=== PATIENT | male | born 1945 | race Caucasian/White ===

== ENCOUNTER → 2016-09-05 09:03 | Outpatient (CLI) | payer MEDICARE, OTHER ==
[2015-11-18 06:21] VITALS: BMI 24.5
[~2016-09-05 09:03] MED LIST: AUGMENTIN 875-11 TAB PO; BAYER CHEWABLE81 MG PO; DECADRON4 MG PO; FOLIC ACID1 MG PO; HYDROCODON-ACE1 EAC6 PO; HYDROCODONE-APA1 TAB PO; HYDROMET PO; MIRALAX17 GM PO; NORVASC5 MG PO; OMNICEF300 MG PO; PHENERGAN25 M1 PO; PREDNISONE20 MG PO; STOOL SOFTENER250 MG PO; VALIUM10 MG PO; ZOFRAN ODT4 MG/UDTAB PO
== END | disposition home or self-care (01) ==
LOC: D.CT 09:03
DX: C34.11 Malignant neoplasm of upper lobe, right bronchus or lung (principal); D64.81 Anemia due to antineoplastic chemotherapy; D70.1 Agranulocytosis secondary to cancer chemotherapy

== ENCOUNTER → 2017-02-14 08:42 | Outpatient (CLI) | payer MEDICARE, OTHER ==
[2015-11-18 06:21] VITALS: BMI 24.5
== END | disposition home or self-care (01) ==
LOC: D.CT 08:42
DX: D70.1 Agranulocytosis secondary to cancer chemotherapy (principal)

== ENCOUNTER 2017-05-07 07:21 | Outpatient (CLI) | payer MEDICARE, OTHER ==
[~2017-05-07] VITALS: Ht 175.3 cm; Wt 69.5 kg
[2017-05-07 07:48] LABS: BASOPHILS 1.6 % (0-2); EOSINOPHILS 2.6 % (0-7); HEMATOCRIT 32.7 % (42.0-54.0); HEMOGLOBIN 10.4 g/dL (13.5-17.5); IMMATURE GRANULOCYTES 0.6 % (0-5); LYMPHOCYTES 13.3 % (15-50); MCHC 31.8 g/dL (31.0-37.0); MCV 97.3 fL (80.0-100.0); MEAN PLATELET VOLUME 9.7 fL (7.4-10.4); MONOCYTES 16.5 % (2-11); NEUTROPHILS 65.4 % (40-80); PLATELET COUNT 191 10x3/uL (130-400); RBC 3.36 10x6/uL (4.20-6.10); RDW 22.7 % (11.5-14.5); WBC 9.4 10x3/uL (4.8-10.8)
[2017-05-07 07:58] LABS: ANION GAP 14.5 mmol/L (8-16); CALCIUM 9.1 mg/dL (8.5-10.1); CARBON DIOXIDE 26.4 mmol/L (21.0-32.0); CREATININE - SERUM 1.6 mg/dL (0.6-1.3); POTASSIUM - SERUM 3.9 mmol/L (3.5-5.1)
[2017-05-07 08:01] LABS: APTT 30.2 SECONDS (22.8-39.4); INR 0.78 (0.85-1.17); PROTIME 10.7 SECONDS (11.6-15.0)
[2017-05-07 08:55] VITALS: BP 122/72; BMI 22.6
--- NOTE | 2017-05-07 15:23 | NUR ---
VS TAKEN AND PLACED ON POST OP SHEET AND PLACE IN CHART
--- NOTE | 2017-05-07 15:43 | NUR ---
REPORT CALLED TO ROSIO MARINELLI ON MED/SURG TRANFER TO ROOM 2227
--- NOTE | 2017-05-07 15:55 | NUR ---
RECIEVED TO ROOM 2223 FROM OUTPATIENT VIA STRETCHER. VSS. DRESSING TO ANTERIOR CHEST C/D/I. O2 2L NC IN USE. NONPRODUCTIVE COUGH. DENIES ANY NEEDS AT THIS TIME.
[2017-05-07 16:01] VITALS: BP 135/78; Ht 175.3 cm; Wt 69.5 kg
--- NOTE | 2017-05-07 18:50 | NUR ---
NO CHANGES NOTED AT THIS TIME.
--- NOTE | 2017-05-07 20:00 | NUR ---
ASSESSMENT PER FLOWSHEET. IV PATENT RT HAND OF NS AT 75CC'S/HR SITE CLEAR. DRESSING TO UPPER CHEST AREA C/D/I BX SITE. O2 ON 2L/M PER NC. HOB UP 30 DEGREES. SR UP X2 CALL LIGHT WITHIN REACH.
--- NOTE | 2017-05-07 20:21 | NUR ---
C/O PAIN IN CHEST AREA FROM COUGHING ALOT. NORCO 5 TAB ONE PO GIVEN FOR PAIN CONTROL.
--- NOTE | 2017-05-07 20:30 | NUR ---
DR. RADFORD HERE TO ASSESS PATIENT.
--- NOTE | 2017-05-07 21:15 | NUR ---
MEDS GIVEN PER MAR.
--- NOTE | 2017-05-08 | NUR ---
EYES CLOSED RESPIRATIONS WITH EASE AND UNLABORED.
--- NOTE | 2017-05-08 01:00 | NUR ---
EYES CLOSED RESPIRATIONS WITH EASE AND UNLABORED.
--- NOTE | 2017-05-08 03:13 | NUR ---
AWAKE COUGHING C/O PAIN IN CHEST DUE TO COUGHING. NORCO 5 TAB ONE PO GIVEN FOR PAIN CONTROL.
--- NOTE | 2017-05-08 05:05 | NUR ---
EYES CLOSED RESPIRATIONS WITH EASE AND UNLABORED.
--- NOTE | 2017-05-08 07:40 | NUR ---
ASSESSMENT COMPLETE. IV TO R HAND PATENT. NS INFUSING AT 75 CC/HR VIA PUMP. DRESSING TO ANTERIOR CHEST C/D/I. O2 2L NC IN USE. DENIES ANY NEEDS AT PRESENT.
[2017-05-08 08:40] VITALS: BP 119/70
--- NOTE | 2017-05-08 09:00 | NUR ---
AMBULATED IN HALLWAY ON ROOM AIR. O2 SAT 98-99% WHILE AMBULATING.
--- NOTE | 2017-05-08 11:25 | NUR ---
IV REMOVED. CATHETER TIP INTACT. DISCHARGE TEACHING GIVEN TO PATIENT. VOICED UNDERSTANDING.
--- NOTE | 2017-05-08 11:45 | NUR ---
DC'D WITH BELONGINGS. STATES HE IS GOING TO VISIT HIS IN HER HOSPITAL ROOM BEFORE HIS RIDE TAKES HIM HOME. REFUSED WHEELCHAIR ACROSS HALLWAY.
== END 2017-05-08 11:45 | disposition home or self-care (01) ==
LOC: D.OPS 07:21 → D.CT 14:00 → D.OPS 14:00 → D.MS 15:45 → D.OPS 05-08 11:45
PROVIDERS: Radiology Diagnostic Radiology
DX: C34.11 Malignant neoplasm of upper lobe, right bronchus or lung (principal); Z01.812 Encounter for preprocedural laboratory examination; Z92.21 Personal history of antineoplastic chemotherapy

== ENCOUNTER → 2017-05-10 09:26 | Outpatient (CLI) | payer MEDICARE, OTHER ==
[2017-05-07 16:01] VITALS: BMI 22.6
[~2017-05-10 09:26] MED LIST changes: +CARDIZEM CD180 MG PO; +PROTONIX40 MG PO
== END | disposition home or self-care (01) ==
LOC: D.RAD 09:26
DX: J93.9 Pneumothorax, unspecified (principal)

== ENCOUNTER → 2017-06-18 10:58 | Outpatient (CLI) | payer MEDICARE, OTHER ==
[2017-05-07 16:01] VITALS: BMI 22.6
== END | disposition home or self-care (01) ==
LOC: D.CT 10:58
DX: C34.11 Malignant neoplasm of upper lobe, right bronchus or lung (principal); D64.81 Anemia due to antineoplastic chemotherapy

== ENCOUNTER → 2017-06-21 07:48 | Outpatient (CLI) | payer MEDICARE, OTHER ==
[~2017-06-21] VITALS: Ht 175.3 cm; Wt 70.0 kg
[2017-06-21 08:17] VITALS: BP 148/76; Ht 175.3 cm; Wt 70.0 kg
== END | disposition home or self-care (01) ==
LOC: D.OPS 07:48
DX: D64.9 Anemia, unspecified (principal)

== ENCOUNTER 2017-07-07 09:43 | Inpatient (IN) | payer MEDICARE, OTHER ==
[~2017-07-07] VITALS: Ht 175.3 cm; Wt 70.6 kg
[2017-07-07] VITALS (9 sets, daily range): BP systolic 84–102; BP diastolic 56–71; BMI 21.0
--- NOTE | ~2017-07-07 | EC ---
PATIENT:YOLY MASON DATE OF SERVICE: 07/07/17 SEX: M MEDICAL RECORD: [id number] DATE OF : 47 LOCATION:[place] [address] AGE OF PATIENT: 72 ADMISSION DATE: 07/07/17 REFERRING PHYSICIAN: INTERPRETING PHYSICIAN: NILSA FRANKEL MD ECHOCARDIOGRAM REPORT ECHO CHARGES 4 ECHO COMPLETE CLINICAL DIAGNOSIS: A-FIB ECHOCARDIOGRAPHIC MEASUREMENTS (adult normal given) AC root (d.<3.7cm) 3.2 cm LV Septum d (<1.2 cm> 0.8 cm Valve Excursion 1.8 cm LV Septum (systole) 1.5 cm Left Atria (s.<4.0cm> 3.5 cm LVPW d(<1.2cm) 1.2 cm RV (d.<2.3cm) 3.1 cm LVPW (sytole) 1.7 cm LV diastole(<5.6CM) 5.0 cm MV E-F(>70mm/sec) cm LV systole 2.7 cm LVOT Diameter 1.9 cm MV exc.(>10mm) cm Est.ejection fraction (50-75%) % Pericardial Effusion N DOPPLER: LVIT cm/sec A cm/sec E 108 cm/sec LA cm/sec RVSP 17.0 mmHg LVOT 79.0 cm/sec AOP1/2T m/s Asc. Ao 162 cm/sec RVOT 56.0 cm/sec RA cm/sec PA 108 cm/sec AV Gradient Peak 11.0 mmHg AV Mean 5.0 mmHg AV Area 1.4 cm MV Gradient Peak 4.9 mmHg MV Mean 1.6 mmHg MV Area cm COMMENTS: Hired Help: Arturo HICKSOE Music Composer: Bar Frankel TAPE# PACS DATE OF SERVICE: 07/07/2017 FINDINGS: 1. Left ventricle is hyperdynamic. Ejection fraction 65%. There is no evidence of wall motion abnormalities. Inflow characteristics are not predictive of diastolic function because of the presence of atrial dysrhythmia. 2. The left atrium is normal size, normal function. 3. The aortic valve is structurally normal. 4. The mitral valve has trace mitral regurgitation. 5. The tricuspid valve is normal. ECHOCARDIOGRAM REPORT [id number] YOLY MASON 6. The RVSP is low. The IVC is significantly collapsed indicating likely volume depletion. 7. The right ventricle and right atrium are normal size, normal function. CONCLUSIONS: The patient has hyperdynamic LV systolic function. There is a mildly dilated right ventricle, but the IVC appears to be small and collapsing indicating low central venous pressures likely. TRANSINT:[id number] Voice Confirmation ID: [id number] DOCUMENT ID: [id number] 07/11/2017 Edited to correct date of service, dm. NILSA FRANKEL MD at 1252 CC: [id number] DICTATION DATE: 07/08/17 0937 POSTING CLERK: 07/08/17 1306 ADM IN [facility] [address] [place] [place] [address]
[~2017-07-07 09:43] MED LIST changes: -CARDIZEM CD180 MG PO; -PROTONIX40 MG PO
[2017-07-07 10:37] LABS: HEMATOCRIT 22.6 % (42.0-54.0); MCH 30.5 pg (26.0-34.0); MCHC 33.2 g/dL (31.0-37.0); MCV 91.9 fL (80.0-100.0); MEAN PLATELET VOLUME 8.1 fL (7.4-10.4); RBC 2.46 10x6/uL (4.20-6.10); RDW 18.4 % (11.5-14.5)
[2017-07-07 10:40] LABS: HEMOGLOBIN 7.5 g/dL (13.5-17.5); PLATELET COUNT 28 10x3/uL (130-400); WBC 0.5 10x3/uL (4.8-10.8)
[2017-07-07 10:58] LABS: ALBUMIN 3.2 g/dL (3.4-5.0); ALKALINE PHOSPHATASE 52 U/L (46-116); ALT (SGPT) 15 U/L (10-68); BILIRUBIN - TOTAL 0.56 mg/dL (0.2-1.3); CALC OSMOLALITY 278 mosm/kg (275-300); CALCIUM 8.9 mg/dL (8.5-10.1); CARBON DIOXIDE 26.4 mmol/L (21.0-32.0); CHLORIDE - SERUM 97 mmol/L (98-107); CREATININE - SERUM 1.6 mg/dL (0.6-1.3); GLUCOSE 134 mg/dL (74-106); POTASSIUM - SERUM 3.5 mmol/L (3.5-5.1); SODIUM 135 mmol/L (136-145); UREA NITROGEN 33 mg/dL (7-18); eGFR NON AFRICAN AMERICAN 45 mL/min (90-120)
[2017-07-07 11:11] LABS: CKMB 0.7 U/L (0.0-3.6); CREATINE KINASE 69 UL (21-232); TROPONIN-I < 0.017 ng/mL (0.000-0.060)
[2017-07-07 11:31] LABS: EOSINOPHILS 3 % (0-7); LYMPHOCYTES 60 % (15-50); MONOCYTES 3 % (2-11); NEUTROPHILS 33 % (40-80); PLATELET ESTIMATE DECREASED
[2017-07-07 14:40] LABS: APPEARANCE CLEAR (CLEAR); BILIRUBIN NEGATIVE (NEGATIVE); COLOR DK YELLOW (YELLOW); GLUCOSE NEGATIVE (NEGATIVE); KETONE NEGATIVE (NEGATIVE); NITRITE NEGATIVE (NEGATIVE); PROTEIN 1+ mg/dL (NEGATIVE); UROBILINOGEN NORMAL (NORMAL)
[2017-07-07 14:42] LABS: BACTERIA FEW /hpf (NONE SEEN); GRANULAR CAST OCC /lpf (NONE SEEN); RED CELLS - URINE 0-5 /hpf (0-5)
[2017-07-07 14:43] LABS: WHITE CELLS - URINE 0-5 /hpf (0-5)
[2017-07-07 17:39] LABS: CKMB 1.5 U/L (0.0-3.6); CREATINE KINASE 83 UL (21-232)
[2017-07-07 17:47] LABS: TROPONIN-I < 0.017 ng/mL (0.000-0.060)
[2017-07-07 22:53] LABS: BASOPHILS 0 % (0-2); EOSINOPHILS 2.1 % (0-7); HEMATOCRIT 24.5 % (42.0-54.0); HEMOGLOBIN 8.2 g/dL (13.5-17.5); LYMPHOCYTES 48.9 % (15-50); MCH 30.5 pg (26.0-34.0); MCHC 33.5 g/dL (31.0-37.0); MCV 91.1 fL (80.0-100.0); MEAN PLATELET VOLUME 8.9 fL (7.4-10.4); MONOCYTES 23.4 % (2-11); NEUTROPHILS 25.6 % (40-80); RBC 2.69 10x6/uL (4.20-6.10); RDW 17.9 % (11.5-14.5)
[2017-07-07 22:56] LABS: PLATELET COUNT 25 10x3/uL (130-400); WBC 0.5 10x3/uL (4.8-10.8)
[2017-07-07 23:14] LABS: CKMB 1.8 U/L (0.0-3.6); CREATINE KINASE 93 UL (21-232); TROPONIN-I 0.018 ng/mL (0.000-0.060)
[2017-07-08] VITALS (26 sets, daily range): BP systolic 91–115; BP diastolic 53–78
[2017-07-08 05:30] LABS: BASOPHILS 0 % (0-2); EOSINOPHILS 4.1 % (0-7); IMMATURE GRANULOCYTES 4.1 % (0-5); LYMPHOCYTES 42.9 % (15-50); MCH 30.4 pg (26.0-34.0); MCHC 33.3 g/dL (31.0-37.0); MCV 91.3 fL (80.0-100.0); MEAN PLATELET VOLUME 8.7 fL (7.4-10.4); MONOCYTES 30.6 % (2-11); NEUTROPHILS 18.3 % (40-80); RBC 2.63 10x6/uL (4.20-6.10)
[2017-07-08 05:37] LABS: PLATELET COUNT 19 10x3/uL (130-400); WBC 0.5 10x3/uL (4.8-10.8)
[2017-07-08 06:00] LABS: CKMB 1.4 U/L (0.0-3.6); CREATINE KINASE 98 UL (21-232); TROPONIN-I < 0.017 ng/mL (0.000-0.060)
[2017-07-08 06:01] LABS: ALBUMIN 2.7 g/dL (3.4-5.0); ANION GAP 13.5 mmol/L (8-16); BILIRUBIN - TOTAL 0.4 mg/dL (0.2-1.3); CALCIUM 7.8 mg/dL (8.5-10.1); CARBON DIOXIDE 24.9 mmol/L (21.0-32.0); CREATININE - SERUM 1.4 mg/dL (0.6-1.3); MAGNESIUM - SERUM 1.8 mg/dL (1.8-2.4); POTASSIUM - SERUM 3.4 mmol/L (3.5-5.1); PROTEIN - SERUM 6.1 g/dL (6.4-8.2)
[2017-07-09] VITALS (14 sets, daily range): BP systolic 110–132; BP diastolic 53–68; Ht 175.3 cm; Wt 70.6 kg
[2017-07-09 04:23] LABS: BASOPHILS 0 % (0-2); EOSINOPHILS 2.2 % (0-7); HEMATOCRIT 27.9 % (42.0-54.0); HEMOGLOBIN 9.3 g/dL (13.5-17.5); IMMATURE GRANULOCYTES 0.4 % (0-5); LYMPHOCYTES 12.2 % (15-50); MCH 30.6 pg (26.0-34.0); MCHC 33.3 g/dL (31.0-37.0); MCV 91.8 fL (80.0-100.0); MEAN PLATELET VOLUME 8.4 fL (7.4-10.4); MONOCYTES 10.9 % (2-11); NEUTROPHILS 74.3 % (40-80); RBC 3.04 10x6/uL (4.20-6.10); RDW 17.5 % (11.5-14.5)
[2017-07-09 04:25] LABS: WBC 2.3 10x3/uL (4.8-10.8)
[2017-07-09 04:27] LABS: PLATELET COUNT 20 10x3/uL (130-400)
[2017-07-09 04:50] LABS: ALBUMIN 2.8 g/dL (3.4-5.0); BILIRUBIN - TOTAL 0.84 mg/dL (0.2-1.3); CALCIUM 8.4 mg/dL (8.5-10.1); CARBON DIOXIDE 26.6 mmol/L (21.0-32.0); CREATININE - SERUM 1.4 mg/dL (0.6-1.3); PROTEIN - SERUM 6.3 g/dL (6.4-8.2)
[2017-07-09 05:27] LABS: ANION GAP 13.4 mmol/L (8-16)
[2017-07-09 13:23] LABS: BASOPHILS 0 % (0-2); EOSINOPHILS 0.8 % (0-7); HEMATOCRIT 27.8 % (42.0-54.0); HEMOGLOBIN 9.2 g/dL (13.5-17.5); IMMATURE GRANULOCYTES 1.6 % (0-5); LYMPHOCYTES 6.5 % (15-50); MCH 30.7 pg (26.0-34.0); MCHC 33.1 g/dL (31.0-37.0); MCV 92.7 fL (80.0-100.0); MEAN PLATELET VOLUME 9.7 fL (7.4-10.4); MONOCYTES 6.2 % (2-11); NEUTROPHILS 84.9 % (40-80); RDW 17.3 % (11.5-14.5)
[2017-07-09 13:24] LABS: WBC 3.7 10x3/uL (4.8-10.8)
[2017-07-09 13:27] LABS: PLATELET COUNT 18 10x3/uL (130-400)
[2017-07-10 03:00] VITALS: BP 122/68
[2017-07-10 04:24] LABS: BASOPHILS 0 % (0-2); EOSINOPHILS 0.4 % (0-7); HEMATOCRIT 26.3 % (42.0-54.0); HEMOGLOBIN 8.7 g/dL (13.5-17.5); IMMATURE GRANULOCYTES 7.3 % (0-5); LYMPHOCYTES 6.3 % (15-50); MCH 30.4 pg (26.0-34.0); MCHC 33.1 g/dL (31.0-37.0); MEAN PLATELET VOLUME 9.1 fL (7.4-10.4); MONOCYTES 6.7 % (2-11); NEUTROPHILS 79.3 % (40-80); RBC 2.86 10x6/uL (4.20-6.10); RDW 17.1 % (11.5-14.5)
[2017-07-10 04:44] LABS: ALBUMIN 2.6 g/dL (3.4-5.0); ANION GAP 10.7 mmol/L (8-16); BILIRUBIN - TOTAL 0.8 mg/dL (0.2-1.3); CALCIUM 7.8 mg/dL (8.5-10.1); CARBON DIOXIDE 27.3 mmol/L (21.0-32.0); CREATININE - SERUM 1.3 mg/dL (0.6-1.3); MAGNESIUM - SERUM 1.6 mg/dL (1.8-2.4); PHOSPHOROUS 2.6 mg/dL (2.5-4.9)
[2017-07-10 05:03] LABS: WBC 5.1 10x3/uL (4.8-10.8)
[2017-07-10 05:04] LABS: PLATELET COUNT 11 10x3/uL (130-400)
[2017-07-10 07:00] VITALS: BP 123/71
[2017-07-10 11:00] VITALS: BP 115/60
[2017-07-10 15:00] VITALS: BP 112/60
[2017-07-10 19:00] VITALS: BP 123/70
[2017-07-10 23:00] VITALS: BP 125/65
[2017-07-11] VITALS (7 sets, daily range): BP systolic 117–142; BP diastolic 69–85
[2017-07-11 05:56] LABS: BASOPHILS 0 % (0-2); EOSINOPHILS 0 % (0-7); HEMATOCRIT 27.4 % (42.0-54.0); HEMOGLOBIN 9.2 g/dL (13.5-17.5); IMMATURE GRANULOCYTES 0.6 % (0-5); LYMPHOCYTES 3.2 % (15-50); MCH 30.5 pg (26.0-34.0); MCHC 33.6 g/dL (31.0-37.0); MCV 90.7 fL (80.0-100.0); MEAN PLATELET VOLUME 10.3 fL (7.4-10.4); MONOCYTES 4.4 % (2-11); NEUTROPHILS 91.8 % (40-80); RBC 3.02 10x6/uL (4.20-6.10); RDW 16.5 % (11.5-14.5)
[2017-07-11 06:28] LABS: PLATELET COUNT 27 10x3/uL (130-400)
[2017-07-11 06:34] LABS: ALBUMIN 2.7 g/dL (3.4-5.0); ANION GAP 12.4 mmol/L (8-16); BILIRUBIN - TOTAL 0.66 mg/dL (0.2-1.3); CALCIUM 8.2 mg/dL (8.5-10.1); CARBON DIOXIDE 25.9 mmol/L (21.0-32.0); CREATININE - SERUM 1.3 mg/dL (0.6-1.3); MAGNESIUM - SERUM 1.9 mg/dL (1.8-2.4); POTASSIUM - SERUM 4.3 mmol/L (3.5-5.1); PROTEIN - SERUM 6.2 g/dL (6.4-8.2)
[2017-07-12 03:00] VITALS: BP 133/88
[2017-07-12 03:48] LABS: BASOPHILS 0 % (0-2); EOSINOPHILS 0 % (0-7); HEMOGLOBIN 9.2 g/dL (13.5-17.5); IMMATURE GRANULOCYTES 0.3 % (0-5); LYMPHOCYTES 4.5 % (15-50); MCH 30.6 pg (26.0-34.0); MCHC 34.1 g/dL (31.0-37.0); MCV 89.7 fL (80.0-100.0); MEAN PLATELET VOLUME 9.7 fL (7.4-10.4); MONOCYTES 9.9 % (2-11); NEUTROPHILS 85.3 % (40-80); RBC 3.01 10x6/uL (4.20-6.10); RDW 16.4 % (11.5-14.5); WBC 6.2 10x3/uL (4.8-10.8)
[2017-07-12 04:06] LABS: PLATELET COUNT 23 10x3/uL (130-400)
[2017-07-12 04:37] LABS: ALBUMIN 2.9 g/dL (3.4-5.0); ANION GAP 14.8 mmol/L (8-16); BILIRUBIN - TOTAL 0.49 mg/dL (0.2-1.3); CALCIUM 8.5 mg/dL (8.5-10.1); CARBON DIOXIDE 23.7 mmol/L (21.0-32.0); CREATININE - SERUM 1.5 mg/dL (0.6-1.3); POTASSIUM - SERUM 4.5 mmol/L (3.5-5.1); PROTEIN - SERUM 6.7 g/dL (6.4-8.2)
[2017-07-12 07:00] VITALS: BP 124/47
[2017-07-12 11:00] VITALS: BP 104/64
[2017-07-12 15:00] VITALS: BP 139/82
[2017-07-12 19:00] VITALS: BP 131/77
[2017-07-12 23:00] VITALS: BP 144/78
[2017-07-13 03:00] VITALS: BP 132/78
[2017-07-13 04:28] LABS: BASOPHILS 0 % (0-2); EOSINOPHILS 0 % (0-7); HEMATOCRIT 27.9 % (42.0-54.0); HEMOGLOBIN 9.3 g/dL (13.5-17.5); IMMATURE GRANULOCYTES 0.7 % (0-5); LYMPHOCYTES 5.2 % (15-50); MCH 30.4 pg (26.0-34.0); MCHC 33.3 g/dL (31.0-37.0); MCV 91.2 fL (80.0-100.0); MEAN PLATELET VOLUME 9.6 fL (7.4-10.4); MONOCYTES 12.1 % (2-11); RBC 3.06 10x6/uL (4.20-6.10); RDW 16.3 % (11.5-14.5)
[2017-07-13 04:31] LABS: PLATELET COUNT 39 10x3/uL (130-400)
[2017-07-13 04:45] LABS: ALBUMIN 3.2 g/dL (3.4-5.0); BILIRUBIN - TOTAL 0.46 mg/dL (0.2-1.3); CREATININE - SERUM 1.4 mg/dL (0.6-1.3); MAGNESIUM - SERUM 2.1 mg/dL (1.8-2.4); PHOSPHOROUS 3.4 mg/dL (2.5-4.9); POTASSIUM - SERUM 4.1 mmol/L (3.5-5.1)
[2017-07-13 04:54] LABS: ANION GAP 10.4 mmol/L (8-16); CARBON DIOXIDE 29.7 mmol/L (21.0-32.0)
[2017-07-13 07:00] VITALS: BP 127/81
[2017-07-13] MEDS ORDERED: CARDIZEM CD180 MG PO (09:00)
[2017-07-13] MEDS ORDERED: PREDNISONE20 MG PO (09:01)
[2017-07-13] MEDS ORDERED: FOLIC ACID1 MG PO (09:01)
[2017-07-13] MEDS ORDERED: PROTONIX40 MG PO (09:02)
== END 2017-07-13 11:28 | disposition home or self-care (01) | DRG 808 ==
LOC: D.ER 09:43 → D.CVICU 18:57 → D.ICU 18:57 → D.CVICU 07-08 09:53
PROVIDERS: Family Medicine; Internal Medicine Medical Oncology; Internal Medicine Pulmonary Disease
DX: D61.810 Antineoplastic chemotherapy induced pancytopenia (principal); J15.6 Pneumonia due to other Gram-negative bacteria; J15.212 Pneumonia due to Methicillin resistant Staphylococcus aureus; J96.91 Respiratory failure, unspecified with hypoxia; C34.11 Malignant neoplasm of upper lobe, right bronchus or lung; N17.9 Acute kidney failure, unspecified; E87.1 Hypo-osmolality and hyponatremia; J44.0 Chronic obstructive pulmonary disease with (acute) lower respiratory infection; J44.1 Chronic obstructive pulmonary disease with (acute) exacerbation; I12.9 Hypertensive chronic kidney disease with stage 1 through stage 4 chronic kidney disease, or unspecified chronic kidney disease; N18.9 Chronic kidney disease, unspecified; I95.9 Hypotension, unspecified; I48.91 Unspecified atrial fibrillation

== ENCOUNTER 2017-08-06 11:39 | Inpatient (IN) | payer MEDICARE, OTHER ==
[~2017-08-06] VITALS: Ht 175.3 cm; Wt 66.7 kg
[~2017-08-06 11:39] MED LIST changes: +CARDIZEM CD180 MG PO; +PROTONIX40 MG PO
[2017-08-06 12:17] LABS: BASOPHILS 0 % (0-2); EOSINOPHILS 0.4 % (0-7); HEMATOCRIT 21.7 % (42.0-54.0); HEMOGLOBIN 7.6 g/dL (13.5-17.5); IMMATURE GRANULOCYTES 0.6 % (0-5); LYMPHOCYTES 9.6 % (15-50); MCH 30.6 pg (26.0-34.0); MCV 87.5 fL (80.0-100.0); MONOCYTES 28.5 % (2-11); NEUTROPHILS 60.9 % (40-80); RBC 2.48 10x6/uL (4.20-6.10); RDW 17.9 % (11.5-14.5); WBC 4.8 10x3/uL (4.8-10.8)
[2017-08-06 12:35] LABS: ALBUMIN 3.1 g/dL (3.4-5.0); ANION GAP 13.6 mmol/L (8-16); BILIRUBIN - TOTAL 2.5 mg/dL (0.2-1.3); CALCIUM 9.2 mg/dL (8.5-10.1); CARBON DIOXIDE 28.3 mmol/L (21.0-32.0); CREATININE - SERUM 1.4 mg/dL (0.6-1.3); POTASSIUM - SERUM 3.9 mmol/L (3.5-5.1); PROTEIN - SERUM 7.4 g/dL (6.4-8.2)
[2017-08-06 12:45] LABS: PLATELET COUNT 31 10x3/uL (130-400)
[2017-08-06] MEDS ORDERED: ZOFRAN4 MG PO (12:53)
[2017-08-06] MEDS ORDERED: CETIRIZINE HCL5 MG PO (12:55)
[2017-08-06] MEDS ORDERED: ATIVAN0.5 MG PO (12:56)
[2017-08-06 13:09] VITALS: BP 105/66; BMI 21.7
[2017-08-06 16:00] VITALS: BP 116/60
[2017-08-06 21:14] VITALS: BP 119/71
[2017-08-07 01:38] VITALS: BP 113/71
[2017-08-07 05:52] LABS: BASOPHILS 0 % (0-2); EOSINOPHILS 1.9 % (0-7); HEMATOCRIT 24.2 % (42.0-54.0); HEMOGLOBIN 8.3 g/dL (13.5-17.5); IMMATURE GRANULOCYTES 0.6 % (0-5); LYMPHOCYTES 12.1 % (15-50); MCH 29.3 pg (26.0-34.0); MCHC 34.3 g/dL (31.0-37.0); MONOCYTES 23.1 % (2-11); NEUTROPHILS 62.3 % (40-80); RBC 2.83 10x6/uL (4.20-6.10); RDW 16.3 % (11.5-14.5)
[2017-08-07 05:55] VITALS: BP 121/77
[2017-08-07 06:12] LABS: MCV 85.5 fL (80.0-100.0); WBC 3.2 10x3/uL (4.8-10.8)
[2017-08-07 06:14] LABS: PLATELET COUNT 19 10x3/uL (130-400)
[2017-08-07 06:28] LABS: ALBUMIN 2.5 g/dL (3.4-5.0); ANION GAP 12.2 mmol/L (8-16); BILIRUBIN - TOTAL 2.2 mg/dL (0.2-1.3); CALCIUM 7.9 mg/dL (8.5-10.1); CARBON DIOXIDE 26.8 mmol/L (21.0-32.0); CREATININE - SERUM 1.2 mg/dL (0.6-1.3); PROTEIN - SERUM 6.3 g/dL (6.4-8.2)
[2017-08-07 08:13] VITALS: BP 124/70
[2017-08-07 13:20] VITALS: Ht 175.3 cm; Wt 66.7 kg
[2017-08-07 21:30] VITALS: BP 118/69
[2017-08-08 01:10] VITALS: BP 117/79
[2017-08-08 04:36] VITALS: BP 124/78
[2017-08-08 05:32] LABS: BASOPHILS 0.2 % (0-2); EOSINOPHILS 1.3 % (0-7); HEMATOCRIT 27.7 % (42.0-54.0); HEMOGLOBIN 9.5 g/dL (13.5-17.5); IMMATURE GRANULOCYTES 0.7 % (0-5); LYMPHOCYTES 11.3 % (15-50); MCH 29.2 pg (26.0-34.0); MCHC 34.3 g/dL (31.0-37.0); MCV 85.2 fL (80.0-100.0); MEAN PLATELET VOLUME 9.9 fL (7.4-10.4); MONOCYTES 19.3 % (2-11); NEUTROPHILS 67.2 % (40-80); RBC 3.25 10x6/uL (4.20-6.10); RDW 16.1 % (11.5-14.5)
[2017-08-08 05:50] LABS: WBC 4.6 10x3/uL (4.8-10.8)
[2017-08-08 05:53] LABS: PLATELET COUNT 42 10x3/uL (130-400)
[2017-08-08 06:00] LABS: ALBUMIN 2.6 g/dL (3.4-5.0); ANION GAP 10.8 mmol/L (8-16); BILIRUBIN - TOTAL 1.75 mg/dL (0.2-1.3); CALCIUM 8.6 mg/dL (8.5-10.1); CARBON DIOXIDE 29.3 mmol/L (21.0-32.0); CREATININE - SERUM 1.1 mg/dL (0.6-1.3); POTASSIUM - SERUM 4.1 mmol/L (3.5-5.1); PROTEIN - SERUM 6.4 g/dL (6.4-8.2)
[2017-08-08 08:00] VITALS: BP 129/83
[2017-08-08 12:09] VITALS: BP 152/80
[2017-08-08 16:50] VITALS: BP 136/88
[2017-08-08 22:53] VITALS: BP 126/84
[2017-08-09] VITALS (11 sets, daily range): BP systolic 96–142; BP diastolic 66–88
[2017-08-09 04:45] LABS: BASOPHILS 0 % (0-2); EOSINOPHILS 0 % (0-7); HEMATOCRIT 30.1 % (42.0-54.0); HEMOGLOBIN 10.3 g/dL (13.5-17.5); IMMATURE GRANULOCYTES 1.3 % (0-5); LYMPHOCYTES 9.6 % (15-50); MCH 29.4 pg (26.0-34.0); MCHC 34.2 g/dL (31.0-37.0); MEAN PLATELET VOLUME 10.6 fL (7.4-10.4); MONOCYTES 3.5 % (2-11); NEUTROPHILS 85.6 % (40-80); RDW 16.3 % (11.5-14.5); WBC 4.6 10x3/uL (4.8-10.8)
[2017-08-09 04:48] LABS: PLATELET COUNT 51 10x3/uL (130-400)
[2017-08-09 05:03] LABS: INR 0.99 (0.85-1.17); PROTIME 12.7 SECONDS (11.6-15.0)
[2017-08-09 05:04] LABS: APTT 33.3 SECONDS (22.8-39.4)
[2017-08-09 05:17] LABS: ALBUMIN 2.6 g/dL (3.4-5.0); ANION GAP 13.3 mmol/L (8-16); BILIRUBIN - TOTAL 1.16 mg/dL (0.2-1.3); CALCIUM 8.7 mg/dL (8.5-10.1); CARBON DIOXIDE 27.2 mmol/L (21.0-32.0); CREATININE - SERUM 1.3 mg/dL (0.6-1.3); POTASSIUM - SERUM 4.5 mmol/L (3.5-5.1); PROTEIN - SERUM 6.8 g/dL (6.4-8.2)
[2017-08-09 14:57] LABS: PROTEIN - BODY FLUID 4.1 G/DL
[2017-08-09 15:20] LABS: MACROPHAGES BF 4 %; NEUT - BF 80 %
[2017-08-10 01:16] VITALS: BP 143/47
[2017-08-10 05:14] VITALS: BP 132/86
[2017-08-10 05:14] LABS: BASOPHILS 0 % (0-2); EOSINOPHILS 0 % (0-7); HEMOGLOBIN 9.8 g/dL (13.5-17.5); IMMATURE GRANULOCYTES 1.2 % (0-5); LYMPHOCYTES 5.2 % (15-50); MCH 29.6 pg (26.0-34.0); MCHC 33.8 g/dL (31.0-37.0); MCV 87.6 fL (80.0-100.0); MONOCYTES 4.9 % (2-11); NEUTROPHILS 88.7 % (40-80); PLATELET COUNT 103 10x3/uL (130-400); RBC 3.31 10x6/uL (4.20-6.10); WBC 7.7 10x3/uL (4.8-10.8)
[2017-08-10 05:27] LABS: ALBUMIN 2.7 g/dL (3.4-5.0); BILIRUBIN - TOTAL 0.8 mg/dL (0.2-1.3); CALCIUM 8.1 mg/dL (8.5-10.1); CARBON DIOXIDE 29.1 mmol/L (21.0-32.0); CREATININE - SERUM 1.2 mg/dL (0.6-1.3); POTASSIUM - SERUM 4.1 mmol/L (3.5-5.1); PROTEIN - SERUM 6.6 g/dL (6.4-8.2)
[2017-08-10 08:12] VITALS: BP 127/85
[2017-08-10 12:30] VITALS: BP 132/80
[2017-08-10 15:58] VITALS: BP 130/69
[2017-08-10 19:11] LABS: AFB SPECIMEN PROCESSING Not Indicated (())
[2017-08-10 21:07] VITALS: BP 136/73
[2017-08-11 01:58] VITALS: BP 137/91
[2017-08-11 05:07] LABS: BASOPHILS 0.1 % (0-2); EOSINOPHILS 0 % (0-7); HEMATOCRIT 27.9 % (42.0-54.0); HEMOGLOBIN 9.3 g/dL (13.5-17.5); IMMATURE GRANULOCYTES 1.3 % (0-5); LYMPHOCYTES 3.3 % (15-50); MCH 29.7 pg (26.0-34.0); MCHC 33.3 g/dL (31.0-37.0); MCV 89.1 fL (80.0-100.0); MEAN PLATELET VOLUME 10.9 fL (7.4-10.4); NEUTROPHILS 89.3 % (40-80); PLATELET COUNT 111 10x3/uL (130-400); RBC 3.13 10x6/uL (4.20-6.10); RDW 16.1 % (11.5-14.5)
[2017-08-11 05:11] LABS: WBC 9.7 10x3/uL (4.8-10.8)
[2017-08-11 05:24] VITALS: BP 141/79
[2017-08-11 05:27] LABS: ALBUMIN 2.6 g/dL (3.4-5.0); ANION GAP 13.6 mmol/L (8-16); BILIRUBIN - TOTAL 0.55 mg/dL (0.2-1.3); CALCIUM 8.5 mg/dL (8.5-10.1); CARBON DIOXIDE 26.5 mmol/L (21.0-32.0); CREATININE - SERUM 1.2 mg/dL (0.6-1.3); POTASSIUM - SERUM 4.1 mmol/L (3.5-5.1); PROTEIN - SERUM 6.3 g/dL (6.4-8.2)
[2017-08-11 07:06] VITALS: BP 130/83
[2017-08-11 11:04] VITALS: BP 144/91
[2017-08-11 15:11] VITALS: BP 142/89
[2017-08-11 21:12] VITALS: BP 134/83
[2017-08-12 00:59] VITALS: BP 151/90
[2017-08-12 05:05] VITALS: BP 149/94
[2017-08-12 08:24] VITALS: BP 143/90
[2017-08-12] MEDS ORDERED: XOPENEX 0.0.63 MG/3 UPD (09:33)
[2017-08-12] MEDS ORDERED: CARDIZEM CD180 MG PO (09:34)
[2017-08-12] MEDS ORDERED: ELIQUIS5 MG PO (09:34)
[2017-08-12] MEDS ORDERED: BENZONATATE200 MG PO (09:35)
[2017-08-12] MEDS ORDERED: SINGULAIR10 MG PO (09:36)
[2017-08-12] MEDS ORDERED: MUCINEX DM ER1 EAC1 PO (09:36)
[2017-08-12] MEDS ORDERED: PROTONIX40 MG PO (09:37)
[2017-08-12] MEDS ORDERED: PREDNISONE20 MG PO (09:38)
[2017-08-12] MEDS ORDERED: PULMICORT0.5 MG/21 UPD (09:39)
[2017-08-12] MEDS ORDERED: HYDROCODON-ACE1 EAC7 PO (09:39)
[2017-08-14 12:18] LABS: FUNGUS STAIN Final report (())
[2017-09-06 12:18] LABS: FUNGUS MYCOLOGY CULTURE Final report (())
[2017-10-05 11:46] LABS: ACID FAST CULTURE Negative (()); ACID FAST SMEAR Negative (())
== END 2017-08-12 12:21 | disposition home or self-care (01) | DRG 808 ==
LOC: D.MS 11:39
PROVIDERS: Internal Medicine Medical Oncology; Internal Medicine Pulmonary Disease; Specialist
PROC: 0W993ZZ Drainage of Right Pleural Cavity, Percutaneous Approach (ICD-10-PCS; 2017-08-09)
PROC: 0W993ZZ Drainage of Right Pleural Cavity, Percutaneous Approach (ICD-10-PCS; principal; 2017-08-09 10:55)
DX: D61.810 Antineoplastic chemotherapy induced pancytopenia (principal); J15.6 Pneumonia due to other Gram-negative bacteria; J15.212 Pneumonia due to Methicillin resistant Staphylococcus aureus; C34.90 Malignant neoplasm of unspecified part of unspecified bronchus or lung; J90 Pleural effusion, not elsewhere classified; J98.11 Atelectasis; J44.0 Chronic obstructive pulmonary disease with (acute) lower respiratory infection; J44.1 Chronic obstructive pulmonary disease with (acute) exacerbation; J44.9 Chronic obstructive pulmonary disease, unspecified; I12.9 Hypertensive chronic kidney disease with stage 1 through stage 4 chronic kidney disease, or unspecified chronic kidney disease; N18.9 Chronic kidney disease, unspecified; R53.81 Other malaise; I48.91 Unspecified atrial fibrillation; F17.200 Nicotine dependence, unspecified, uncomplicated